=== PATIENT | female | born 1955 | race Caucasian/White ===

== ENCOUNTER 2016-12-13 05:04 | Emergency (ER) | payer OTHER ==
--- NOTE | ~2016-12-13 | CR72 ---
[facility] A Service of [facility] & [facility] RADIOLOGY TEXT RESULTS PATIENT: CHUN MELISSA LOCATION: [facility] : 55 UNIT #: [id number] AGE: [address]: Scott Liang MD SEX: F ORDER DR: [id number] [facility] [address] [place], [place] [address] [id number] MR#: [id number] Acc #: [id number] NAME: CHUN MELISSA : 1955 SEX: F STUDY DATE/TIME: 12/13/2016 6:59 UNIT: [facility] ROOM: STUDY DESCRIPTION: CR Chest Single View Portable Attending Physician: Scott Liang M.D. Ordering Physician: Scott Liang M.D. Primary Care Physician: Abdi Morgan M.D. MEDICAL IMAGING REPORT This report is preliminary unless electronic signature is present EXAM Portable chest HISTORY Shortness of air. COMPARISON 07/01/2016. FINDINGS Portable view of the chest demonstrates right-sided volume loss with mild elevation of the right hemidiaphragm. Probable small chronic pleural thickening or effusion. Opacity overlying the right midlung may be related to focal scarring or pleural-based process. Left lung remains clear. Heart, mediastinum unremarkable in this patient post median sternotomy and valve replacement. Indwelling venous access port noted. Postoperative change noted in the right shoulder and C-spine. Overall no acute findings. Dictated by... Silvia Valenzuela M.D. THIS IS AN ELECTRONICALLY VERIFIED REPORT Silvia Valenzuela M.D. at 12/13/2016 3:56 PM ARDEN/chandan TD: 12/13/2016 07:19 JOB #: [id number] MEDICAL IMAGING REPORT Page 1 of 1 COPY
--- NOTE | ~2016-12-13 | EKG ---
PATIENT: CHUN MELISSA UNIT #: [id number] Ventricular Rate: 71 BPM Atrial Rate: 71 BPM P-R Interval: 148 ms QRS Duration: 94 ms Q-T Interval: 426 ms QTC Calculation(Bezet): 462 ms P [place]: 62 degrees Calculated R [place]: 35 degrees Calculated T Ste[place]: 71 degrees Diagnosis Line: Normal sinus rhythm Diagnosis Line: Septal infarct , age undetermined Diagnosis Line: Abnormal ECG Diagnosis Line: When compared with ECG of 01-JUL-2016 14:28, Diagnosis Line: Nonspecific T wave abnormality no longer evident Diagnosis Line: in Lateral leads Diagnosis Line: Confirmed by ALEXUS DAVIES MD ([id number]) on Diagnosis Line: 12/13/2016 8:11:08 AM INTERPRETING MD: SAMSON BANGURA
[~2016-12-13 05:04] MED LIST: ACETAMINOPHEN PO; ACETAMINOPHEN500 M2 PO; ACETAMINOPHEN650 M3 PO; ADVAIR 115-21 INH; ADVAIR 250-501 EACH IH; ADVAIR 500-501 EACH; ADVAIR 500-501 EACH IH; ADVAIR 5001 DISK W/1 IH; ALAVERT10 M1 PO; ALAVERT10 MG PO; ALBUTEROL 0.5ML INH; ALBUTEROL20 ml INH; ALTACE PO; AMIODARONE PO; AMLODIPINE BESY10 MG PO; AMLODIPINE BESYL5 MG PO; AMOXICILLIN PO; AMOXICILLIN500 M1 PO; ANTIVERT PO; ASPIRIN PO; ASPIRIN81 M1 PO; ASPIRIN81 M2 PO; ASTEPRO205.5 MCG/ NS; ATENOLOL PO; AUGMENTIN875 M1 PO; B-121000 MC1 PO; BACLOFEN10 MG PO; BAYER CHEWABLE81 MG PO; BIOFREEZE118 ML TOP; BUDEPRION XL150 MG PO; BUMETANIDE2 M1 PO; CARDIZEM CD PO; CARDIZEM CD180 M1 PO; CARDIZEM CD240 M1 PO; CARVEDILOL12.5 MG PO; CARVEDILOL6.25 MG PO; CETIRIZINE HCL10 MG PO; CHANTIX PO; CLARITHROMYCIN500 M1; CLARITHROMYCIN500 M1 PO; CLARITIN10 M2 PO; CLARITIN10 MG PO; CLINDAMYCIN HC300 MG PO; CODEINE 10 MG/118 ML PO; COLESTID1 GM; COMBIVENT INH14.7 GM INH; COMPAZINE5 M1 PO; COMPAZINE5 MG PO; COREG PO; COREG12.5 M1 PO; COREG6.25 MG PO; COUMADIN PO; COUMADIN2.5 MG PO; COUMADIN4 MG PO; COUMADIN5 MG PO; COUMADIN6 MG PO; CYMBALTA PO; CYMBALTA20 MG PO; DAKIN'S MODIF1000 ML EXT; DELTASONE20 MG PO; DETROL; DIFLUCAN PO; DIFLUCAN100 MG PO; DULCOLAX10 MG/SUPP PR; DURAGESIC TOP; EFFEXOR XR PO; EFFEXOR-XR150 MG PO; FERRO-TIME325 MG PO; FLAGYL PO; FLEXERIL PO; FLONASE ALLERG9.9 ML; FLUOXETINE HCL20 M1 PO; FUROSEMIDE40 MG PO; GABAPENTIN400 M2 PO; GABAPENTIN800 MG PO; GLUCOPHAGE500 M1 PO; GLUCOPHAGE500 MG PO; GLUCOTROL PO; HYDROCODON-ACE1 EA11 PO; HYDROCODON-ACE1 EAC5 PO; IMDUR PO; IMDUR-ER30 MG PO; IMDUR30 MG PO; IPRAT-ALBUT 0.5-3 ML INH; K-DUR10 MEQ PO; K-DUR20 ME1 PO; K-DUR20 ME2 PO; KCL PO; KENALOG IN ORABA5 GM TOP; LANTUS100 UNITS/; LASIX PO; LASIX20 MG PO; LEVAQUIN PO; LEVAQUIN750 MG PO; LEVOTHROID125 MCG PO; LEVOXYL175 MC1 PO; LEVOXYL200 MC1 PO; LIPITOR40 MG PO; LISINOPRIL PO; LODINE PO; LOMOTIL WHITE2.5 MG; LOPRESSOR PO; LORTAB 10-5001 EACH PO; LORTAB 7.5-5001 TAB PO; LOVENOX SUBQ; LOVENOX80 MG/0.8 INJ; LOW DOSE ASPIRI81 M1 PO; MEDROL PO; MELATONIN3 M4 PO; METFORMIN HCL500 M1 PO; METFORMIN HCL500 M3 PO; METFORMIN PO; METOPROLOL SUCC50 MG PO; METOPROLOL TART25 MG PO; MICRO-K10 MEQ PO; MONTELUKAST SOD10 MG PO; NAPROXEN PO; NEPHROCAPS CAPSU1 MG PO; NEURONTIN PO; NEURONTIN800 MG DOB; NEURONTIN800 MG PO; NITROGLYGERIN0.4 MG SL; NITROGYLCERIN SUBLINGUAL; NITROSTAT0.4 MG SL; NORCO 10-325 TA1 TAB PO; NORCO 10/325 TA1 TAB PO; NORCO 10/3251 TAB PO; NORCO 5/325 TAB1 TAB PO; NORCO1 TAB 10/3 PO; NORVASC PO; NORVASC10 MG PO; NOVOLOG100 U/M2; NYSTATIN10 G1 MC; OXYCONTIN20 MG; OXYCONTIN20 MG PO; OXYCONTIN40 MG PO; OXYCONTIN60 MG PO; PANTOPRAZOLE SO40 MG PO; PHENERGAN25 MG PO; PLAVIX PO; POTASSIUM CHLO10 ME1 PO; POTASSIUM CHLO10 MEQ DOB; POTASSIUM CHLO10 MEQ PO; PREDNISONE PO; PROTONIX PO; PROZAC PO; PROZAC40 MG PO; REMEDY NUTRASH TOP; SENNA S TABLET1 TAB PO; SINGULAIR PO; SPIRIVA HHN; SPIRIVA RESPIMAT4 G1; SPIRIVA18 MCG INH; SPIRIVA18 MCG PO; SYNTHROID PO; SYNTHROID0.05 MG PO; SYNTHROID0.2 MG DOB; SYNTHROID0.2 MG PO; TOPROL XL 50 MG50 MG PO; TOPROL XL PO; TRAMADOL HCL50 M1 PO; TUSSIONEX PO; VENLAFAXINE HC150 M1 PO; VENLAFAXINE HC150 MG PO; VERAPAMIL ER180 MG PO; VERAPAMIL ER240 M1 PO; VERAPAMIL ER240 MG PO; VICODIN 5/500 T1 TAB PO; VICODIN PO; WARFARIN SODIUM4 M1 PO; WELLBUTRIN PO; ZETIA PO; ZOCOR10 MG PO; ZOFRAN PO; ZYRTEC10 M2 PO; [UNRECOGNIZED DRUG - CODE] INJ; [UNRECOGNIZED DRUG - REMARK]
[2016-12-13 07:49] LABS: POC - TROPONIN <0.05 ng/mL (<=0.05)
[2016-12-13 08:05] LABS: BASOPHIL% 0.1 % (0-2.5); DIFF IND NO; HEMATOCRIT 29.4 % (35.0-45.0); HEMOGLOBIN 9.2 gm/dL (12.0-16.0); LYMPHOCYTE# 2.3 X10e3 (1.0-3.5); LYMPHOCYTE% 34.9 % (17.0-45.0); MEAN CELL VOLUME 91.8 FL (83-96); MEAN CORPUSCULAR HEMOGLOBIN 28.7 PG (28-34); MEAN CORPUSCULAR HGB CONC 31.3 g/dL (30-36); MEAN PLATELET VOLUME 9.6 FL (6.5-11.5); MONOCYTE# 0.6 X10e3 (0-1.0); MONOCYTE% 8.6 % (3.0-12.0); NEUTROPHIL# 3.7 X10e3 (1.5-7.1); NEUTROPHIL% 56.4 % (40-75); PLATELET COUNT 198 X10e3 (140-420); RED BLOOD COUNT 3.21 X10e (3.90-5.30); RED CELL DISTRIBUTION WIDTH 18.1 % (11.0-15.5); WHITE BLOOD COUNT 6.6 X10e3 (4.0-10.5)
[2016-12-13 08:17] LABS: INR 4.2
[2016-12-13 08:21] LABS: PROTHROMBIN TIME (PATIENT) 46.7 SECONDS (9.6-11.5)
[2016-12-13 08:52] LABS: ALBUMIN SERUM 3.2 g/dL (3.5-5.0); BILIRUBIN, DIRECT 0.1 mg/dL (0.0-0.2); BILIRUBIN,INDIRECT 0.4 mg/dL (0.0-0.9); BILIRUBIN,TOTAL 0.5 mg/dL (0.2-2.0); BUN/CREATININE RATIO 16.66; CREATININE SERUM 0.6 mg/dL (0.6-1.4); GLOM FILT RATE Estimated 98.4 mL/min (>60); POTASSIUM 3.9 mmol/L (3.5-5.1); PROTEIN TOTAL SERUM 6.9 g/dL (6.0-8.3)
[2016-12-13] MEDS ORDERED: WARFARIN SODIUM1 MG PO (08:53)
[2016-12-13 09:40] LABS: POC - CKMB <1.0 ng/mL (0.0-7.9); POC - TROPONIN <0.05 ng/mL (<=0.05)
== END 2016-12-13 09:52 | disposition home or self-care (01) ==
LOC: CED 05:04
PROVIDERS: Emergency Medicine
DX: R07.89 Other chest pain (principal); R06.02 Shortness of breath; J44.9 Chronic obstructive pulmonary disease, unspecified; I10 Essential (primary) hypertension; Z87.891 Personal history of nicotine dependence; Z79.899 Other long term (current) drug therapy; Z88.2 Allergy status to sulfonamides; Z88.8 Allergy status to other drugs, medicaments and biological substances; Z88.1 Allergy status to other antibiotic agents
CPT/HCPCS: 36415; 71010; 80048; 80076; 82553; 83880; 84484; 85025; 85610; 93005; 99284

== ENCOUNTER 2017-03-10 11:38 | Observation (INO) | payer OTHER ==
[~2017-03-10] VITALS: Ht 165.1 cm; Wt 82.0 kg
--- NOTE | ~2017-03-10 | DS ---
Unit #: [id number] #: [id number] Patient: CHUN MELISSA [id number] [address] [place], [place] [address] [id number] MR#: [id number] NAME: CHUN MELISSA ROOM: 576 Age: 61 Sex: F Admission Date: 03/10/2017 : 1955 Discharge Date: 03/12/2017 Attending Physician: Judi Castaneda M.D. Primary Care Physician: Abdi Morgan M.D. DISCHARGE SUMMARY REASON FOR ADMISSION Rectal bleeding. HISTORY OF PRESENT ILLNESS/HOSPITAL COURSE The patient is a 61-year-old female with underlying history of lung carcinoma, chronic anticoagulation, atrial fibrillation, CAD, who presented secondary to acute bleeding per rectum. She underwent a CT of abdomen and pelvis new in the emergency room, which raised the possibility of colitis/proctitis. It was also noted she had a mass-like area of consolidation in her right lower lobe. Secondary to her rectal bleeding, this prompted a consultation to GI services by Dr. Rocha and associates. I saw and evaluated the patient. The patent underwent ultimately a colonoscopy that revealed a nonspecific colitis, which was present on the left side. Poor prep was noted but there was no active bleeding, which was noted. Biopsies appropriately were taken. From a GI standpoint, the patient was felt stable to be discharged home. This morning her hemoglobin currently stands at 7.8. During admission her hemoglobin was 8.5. Some level of dilution maybe a contributing factor. Secondary to abnormal urinalysis, initially in the emergency room, final urine culture did reveal E. coli which was sensitive to p.o. Bactrim, ampicillin, as well as Macrobid. She will be given a prescription for Macrobid at the time of discharge for additional three days. Secondary to prior history of lung carcinoma, which is followed at the [facility], this prompted a noncontrast CT, which was performed and did show and interval recurrent disease process and/or new metastatic disease in the right hemithoracic. A dominant mass was in the superior segment of the right lower lobe measuring approximately 3.2 x 4.9 cm. Additional some pleural spiculated mass was also noted in the superior segment of the right lower lobe measuring 3.1 x 2.7 cm. There was supraclavicular, as well as mediastinal adenopathy, which was also noted. These resulted were conveyed to the patient. She states she has a followup appointment on 03/17/2017 with her routine oncologist. I encourage her to keep that appointment for followup in regards to overall level of care. Her TSH on this hospital admission was also noted to be 0.24. Her Unit #: [id number] #: [id number] Patient: CHUN MELISSA Synthroid dosage will be adjusted appropriately. Please see below for final discharge medications. FINAL DISCHARGE DIAGNOSES 1. Bright reg blood per rectum. 2. Colitis. 3. Lung mass/recurrence of lung carcinoma. 4. Possible metastatic lesions present in lung. 5. History of hypertension. 6. Hypothyroidism. 7. Chronic pain syndrome. 8. Chronic anticoagulation. 9. Atrial fibrillation. 10. Coronary artery disease. 11. Prior history of gastroesophageal reflux disease. FINAL DISCHARGE MEDICATIONS 1. Coumadin 1 mg Tuesday, Tuesday, Tuesday, Tuesday, and 0.5 mg additional Tuesday, , Tuesday. 2. Neurontin 800 mg p.o. q.6. 3. Glucophage 500 mg p.o. b.i.d. 4. Coreg 12.5 mg p.o. b.i.d. 5. Lasix 40 g p.o. daily. 6. Singulair 10 mg p.o. q.h.s. 7. Aspirin 81 mg daily. 8. Oxycodone 60 mg p.o. q.12. 9. Protonix 40 mg p.o. daily. 10. Klor-Con 10 mEq p.o. b.i.d. 11. Synthroid 175 mcg p.o. daily. 12. Folic acid 1 mg p.o. daily. 13. Flagyl 500 mg p.o. q.8 x7 days. 14. Cipro 500 mg p.o. b.i.d. x7 days. 15. Macrobid 100 mg p.o. b.i.d. x3 days. DISCHARGE CONDITION Stable. DISCHARGE DISPOSITION Home. OUTPATIENT FOLLOWUP Followup as outlined above. Dictated by... Chadwick Rand TD: 03/15/2017 11:22 JOB #: [id number] Unit #: [id number] #: [id number] Patient: CHUN MELISSA DISCHARGE SUMMARY Page 1 of 1 X Judi Castaneda MD DISCHARGE SUMMARY
--- NOTE | ~2017-03-10 | CO ---
Unit #: [id number] #: [id number] Patient: CHUN MELISSA [id number] [address] [place], [place] [address] [id number] MR#: [id number] NAME: CHUN MELISSA ROOM: 576 Age: 61 Sex: F Admission Date: 03/10/2017 : 1955 Attending Physician: Judi Castaneda M.D. Primary Care Physician: Abdi Morgan M.D. Consultation Date: 03/11/2017 CONSULTATION REPORT PRIMARY CARE PHYSICIAN Abdi Morgan M.D. REASON FOR CONSULTATION Lower gastrointestinal bleed and anemia of acute gastrointestinal blood loss. HISTORY OF PRESENT ILLNESS Ms. Melissa is a 61-year-old white female. The patient has at least 2 to 3 months history of almost daily hematochezia. Today, she had substantial amount of bleeding. She is using a diaper because of the relentless bleeding. There is very little pain associated with the bleeding. She has some cramping in the right and left lower abdomen. She has significant past medical history as mentioned below. Her last colonoscopy was at least 7 or 8 years ago. She also tells me she lost about 40 pounds over the last couple of months. PAST MEDICAL HISTORY Significant for valvular heart disease, status post prosthetic valve replacement; chronic atrial fibrillation, on long-term anticoagulation; coronary artery disease; CHF; hypertension; SLE; lung cancer; hepatitis B; gastroesophageal reflux; diabetes; COPD; chronic respiratory failure; obstructive sleep apnea; hypothyroidism. The patient has had multiple recurrences of lung cancer and she has a surgery, radiation therapy, and currently on chemotherapy. She has a mitral valve replacement mechanical [place]. Ramón valve. Also obstructive sleep apnea, on CPAP machine. PAST SURGICAL HISTORY Included cholecystectomy, appendectomy, breast surgery, lung lobectomy, right knee surgery, herniorrhaphy, hysterectomy, coronary stent placement, prosthetic mitral valve replacement with a St. Ramón valve, coronary artery bypass graft. SOCIAL HISTORY Lives with partner. Quit smoking about 12 years ago. Does not drink alcohol or use any recreational drugs. She walks around with a walker without any help. FAMILY HISTORY Significant for mother having a some form of cancer. HOME MEDICATIONS Include the following. Warfarin, Synthroid, Protonix, folic acid, potassium, Singulair, Lasix, Coreg, aspirin, Glucophage, gabapentin, Unit #: [id number] #: [id number] Patient: CHUN MELISSA OxyContin. In addition, she is on oral chemotherapy agent for lung cancer. ALLERGIES She is allergic to following medicines. Erythromycin, amiodarone, tetracycline, morphine, sulfonamides, and Toradol. REVIEW OF SYSTEMS Detailed review of organ system reveals a 30-pound weight loss. There is no history of fever, chills, or rigors. No history of headache, seizures, chest pain, or syncope. No history of cough, expectoration, or hemoptysis. No history of dysuria, hematuria, or pyuria. No history of focal seizures or extremity weakness. There is history of recurrent hematochezia. No history of skin rash, aphthous ulcer in mouth, or reactive arthritis. PHYSICAL EXAMINATION GENERAL: She is awake and alert, and oriented. VITAL SIGNS: Stable with a temperature of 98.2, pulse is 90 per minute and regular, respiratory rate is 18, and blood pressure is 121/42. She weighs 181 pounds, appears obese. Baseline weight has been about 218 pounds in the past. HEENT: She has moderate pallor. There being no icterus, lymphadenopathy, and grade 1 to 2 pitting peripheral edema. CARDIOVASCULAR: Reveals prosthetic heart valve clicking sounds on auscultation. LUNGS: Reveal bilateral symmetric normal air entry. ABDOMEN: Soft, obese, and nontender. Liver and spleen are not palpable. Bowel sounds normal. DIAGNOSTIC STUDIES LABORATORY RESULTS: Shows an admission hemoglobin of 8.1, baseline hemoglobin is 13. Red cell indices are normochromic and normocytic. Her white count is 6.8 and platelet count is 234. Serum chemistry shows a normal BUN and creatinine and electrolytes, and albumin of 2.9. LFTs otherwise normal. Her iron studies showed low transferrin saturation. B12 and folate levels normal to high. CLINICAL IMPRESSION The patient with substantial intermittent hematochezia, also underlying iron deficiency and multiple comorbidities as mentioned under past medical history. She clearly at high risk for complications from any procedure. A colonoscopy with possible internal hemorrhoidal band ligation will be performed tomorrow. The pros and cons of procedure, potential risks, complications were discussed with the patient and she was reassured. She will require prophylactic antibiotics before the procedure. Thank you for asking me to see this pleasant woman. I appreciate the consult. Dictated by... Chadwick Ramírez/willy TD: 03/11/2017 13:09 JOB #: [id number] CC: Chadwick Cook M.D. Unit #: [id number] #: [id number] Patient: CHUN MELISSA CONSULTATION REPORT Page 1 of 1 X Bertrand Rocha MD CONSULTATION REPORT
--- NOTE | ~2017-03-10 | EKG ---
PATIENT: CHUN MELISSA UNIT #: [id number] Ventricular Rate: 74 BPM Atrial Rate: 74 BPM P-R Interval: 150 ms QRS Duration: 94 ms Q-T Interval: 410 ms QTC Calculation(Bezet): 455 ms P [place]: 70 degrees Calculated R [place]: 22 degrees Calculated T [place]: 64 degrees Diagnosis Line: Normal sinus rhythm Diagnosis Line: Normal ECG Diagnosis Line: When compared with ECG of 10-MAR-2017 15:28, Diagnosis Line: No significant change was found Diagnosis Line: Confirmed by HUNTER GREEN MD ([id number]) on 03/11/2017 Diagnosis Line: 4:51:03 PM INTERPRETING MD: PETER BANGURA
--- NOTE | ~2017-03-10 | OR ---
Unit #: [id number] #: [id number] Patient: CHUN MELISSA [id number] [address] [place], [place] [address] [id number] MR#: [id number] NAME: CHUN MELISSA ROOM: 576 Date of Procedure: 03/11/2017 Admission Date: 03/10/2017 Surgeon: Bertrand Rocha M.D. : 1955 Attending Physician: Judi Castaneda M.D. Primary Care Physician: Abdi Morgan M.D. OPERATIVE REPORT PRIMARY CARE PHYSICIAN Abdi Morgan M.D. PREOPERATIVE DIAGNOSIS Hematochezia. PROCEDURES PERFORMED Colonoscopy and biopsies. POSTOPERATIVE DIAGNOSES The patient had nonspecific left-sided colitis, changes of primarily in the form of granularity, erythema erosions, and friability. The transverse and right side of the colon were spared. The quality of the prep was poor with lot of liquid stool residue coating throughout the entire especially right colon. As a result, even significant polyps could have been missed during examination. Multiple biopsies were obtained from the sigmoid and descending colon and sent for histology. Specifically, the patient did not have any diverticula or hemorrhoids. RECOMMENDATIONS The patient will be started on regular diet. She will be followed up in the office in the next 8 to 10 weeks' time along with results of the biopsies. SEDATION USED MAC. DESCRIPTION OF PROCEDURE Following detailed explanation of the potential risks and complications of a colonoscopy, namely perforation, bleeding, and complication related to sedation, the patient was brought to GI lab and laid in the left lateral decubitus position. A digital rectal examination was performed, which was normal. Lubricated tip of the Olympus video colonoscope was inserted through the anus and advanced under direct vision. The scope was advanced past rectosigmoid into descending colon. No diverticula were noted in this area. The patient, however, with evidence of diffuse nonspecific colitis involving the sigmoid and descending colon. These were in the form of erythema, granularity, friability, and sparse ulceration. As the scope was advanced in the transverse colon, the mucosa appeared normal. No diverticula were seen this area. The scope tip was then navigated all the way up to cecum with visualization of the ileocecal valve and the appendiceal orifice. Preparation was poor especially in the right colon Unit #: [id number] #: [id number] Patient: CHUN MELISSA which was covered with a coat of liquid stool throughout that could not be thoroughly washed or suctioned. As a result, even sizable polyps could have been missed during examination. No obstructing colon cancer could have missed however. Successive segments of the colonic mucosa were examined upon withdrawal and appeared unremarkable except for the left-sided changes noted earlier. Biopsies were obtained from this area and sent for histology. Specifically, the patient did not have any diverticulosis nor any hemorrhoids. The scope was then withdrawn and the patient returned to the recovery area. She tolerated the procedure without any postprocedure complications. Dictated by... Chadwick Ramírez/willy TD: 03/11/2017 16:16 JOB #: [id number] CC: Chadwick Gonzalez M.D. OPERATIVE REPORT Page 1 of 1 X Bertrand Rocha MD X PROCEDURE OPERATIVE NOTE
--- NOTE | ~2017-03-10 | HP ---
Unit #: [id number] #: [id number] Patient: CHUN MELISSA [id number] [address] [place], [place] [address] [id number] MR#: [id number] NAME: CHUN MELISSA ROOM: Age: 61 Sex: F Admission Date: 03/10/2017 : 1955 Attending Physician: Mele Zayas D.O. Primary Care Physician: Abdi Morgan M.D. HISTORY AND PHYSICAL CHIEF COMPLAINT Rectal bleeding. HISTORY OF PRESENT ILLNESS The patient is a 61-year-old female with a past medical history of multiple medical problems including valvular heart disease, chronic anticoagulation, atrial fibrillation, coronary artery disease, CHF, hypertension, lung cancer, lupus, hepatitis B, GERD, diabetes, COPD, chronic respiratory failure, obstructive sleep apnea, and hypothyroidism, who presented to the emergency department for evaluation of the above. The patient states that she has had rectal bleeding for the past couple of months. Today, she states that her diaper was "full of blood." She states that she has had loose stool for several months as well. She reports four bouts of loose stool within the past 24 hours. She also reports lower abdominal pain for the past two to three days that she describes as "pain." There are no exacerbating or alleviating factors. She also has right-sided back/flank pain that she has had since having surgery related to lung cancer. She denies any fever, no cough or cold symptoms, no chest pain or trouble breathing, and no vomiting. She states that she has had decreased appetite and has in fact lost weight over the past couple of months, possibly up to 40 pounds. She has had a colonoscopy in the past. She thinks it was somewhere off of [address]. She thinks it was about five years ago. There are no records. She did have an EGD February 12, 2010, that showed gastritis. The patient has an appointment to see Dr. Rocha later this month. In the emergency department, initial pulse and blood pressure were 87 and 143/54, respectively. She was noted to be Hemoccult positive. Hemoglobin is 8.5. INR is 1.7. A CT of the abdomen and pelvis is pending at the time of this dictation. She is being admitted to [facility] for evaluation and further treatment. PAST MEDICAL HISTORY 1. Admission to [facility] August 03-2015, for acute respiratory failure and COPD exacerbation. 2. Chronic obstructive pulmonary disease. 3. Chronic respiratory failure on two liters of oxygen per nasal cannula continuous. The patient has seen Chest Medicine in the past. 4. Lung cancer with multiple recurrences. The patient states that this is the fourth recurrence. She is currently receiving an unknown medication. She is managed by Dr. Rutherford. She has had lobectomies in the past, as well as radiation and chemotherapy. 5. Congestive heart failure. The patient had a transesophageal Unit #: [id number] #: [id number] Patient: CHUN MELISSA echocardiogram December 03, 2011, that showed an ejection fraction of 59% with mild concentric left ventricular hypertrophy. The patient sees Dr. Palacios. 6. Coronary artery disease, status post coronary artery bypass grafting and stent placement. 7. Valvular heart disease, status post mitral valve replacement with mechanical St. Ramón valve. 8. Atrial fibrillation. 9. Hypertension. 10. Lupus. 11. Hepatitis B. 12. Gastroesophageal reflux disease. 13. Diabetes with neuropathy. 14. Obstructive sleep apnea previously on CPAP, but the patient states that she is now only on oxygen. PAST SURGICAL HISTORY 1. EGD February 12, 2010, showed gastritis. 2. Colonoscopy more than five years ago (no records). 3. Mechanical St. Ramón valve replacement. 4. Coronary artery bypass grafting. 5. Cardiac stent. 6. Appendectomy. 7. Cholecystectomy. 8. Back surgery. 9. Neck surgery. 10. Hysterectomy. 11. Hernia repair. 12. Right wrist surgery. 13. Lung lobectomy. 14. Breast surgery. SOCIAL HISTORY The patient lives with her partner. She quit smoking in 2004. There is no alcohol or illicit drug use. She walks without assistance. FAMILY HISTORY Notable for her mother having some type of malignancy. ALLERGIES Toradol, sulfa, morphine, tetracycline, erythromycin, and amiodarone. HOME MEDICATIONS 1. Warfarin 1 mg Tuesday/Tuesday/Tuesday/Tuesday and 0.5 mg Tuesday//Tuesday. 2. Synthroid 0.2 mg daily. 3. Protonix 40 mg daily. 4. Folic acid 1 mg daily. 5. Potassium 10 mEq twice daily. 6. Singulair 10 mg daily. 7. Lasix 40 mg daily. 8. Coreg 12.5 mg twice daily. 9. Aspirin 81 mg daily. 10. Glucophage 500 mg twice daily. 11. Gabapentin 800 mg q.4 hours. 12. OxyContin 60 mg q.12 hours. REVIEW OF SYSTEMS Unit #: [id number] #: [id number] Patient: CHUN MELISSA A complete review of systems is negative except as indicated in the HPI. The patient states that Dr. Palacios's office manages her INR. It was last checked on Wednesday, March 08, 2017, and was 3 per the patient. PHYSICAL EXAMINATION VITAL SIGNS: Temperature 98, pulse 87, respirations 17, blood pressure 143/54, and oxygen saturation 97% on room air. GENERAL: Patient is a female who is awake, alert, and in no acute distress. HEENT: Head is atraumatic. Mucous membranes are moist. NECK: Supple. Trachea is midline. CARDIOVASCULAR: Irregular. LUNGS: Clear to auscultation bilaterally with no increased work of breathing. ABDOMEN: Soft. She is tender to palpation in the lower quadrants. Bowel sounds are present in all four quadrants. Rectal exam was Hemoccult-positive per ER documentation. EXTREMITIES: Nontender with no pedal edema. NEUROLOGIC: Patient is awake and alert. She follows commands. PSYCHIATRIC: Mood and affect are normal. Patient is cooperative. SKIN: Skin of examined areas is warm and dry. DIAGNOSTIC STUDIES LABORATORY: Complete blood count notable for hemoglobin and hematocrit of 8.5 and 27.5, respectively. Comprehensive metabolic panel notable for a glucose of 137, alkaline phosphatase 106, albumin 3.1, and lipase is 17. INR is 1.7. ASSESSMENT The patient is a 61-year-old female with: 1. Gastrointestinal bleed. 2. Normocytic anemia. The patient's hemoglobin was 9.2 on December 13, 2016. It is 8.5 today. 3. Abdominal pain. CT of the abdomen and pelvis is pending at the time of this dictation. 4. Chronic anticoagulation with Coumadin. INR is 1.7. 5. Valvular heart disease, status post mitral valve replacement with mechanical St. Ramón valve. 6. Atrial fibrillation followed by Dr. Palacios. 7. Coronary artery disease, status post cardiac stent placement and coronary artery bypass grafting. 8. Congestive heart failure with ejection fraction of 59% noted on echocardiogram December 03, 2011. 9. Hypertension. 10. History of lung cancer with multiple recurrences, currently followed by Dr. Rutherford, on an oral medication. She is status post lobectomy, radiation, and chemotherapy in the past. 11. Lupus, not followed by air marshal. 12. Hepatitis B. 13. Gastroesophageal reflux disease. 14. Diabetes. 15. Chronic obstructive pulmonary disease, not followed by a sap hana developer, but the patient has seen Chest Medicine in the past. 16. Chronic respiratory failure, on two liters of oxygen per nasal cannula. 17. Obstructive sleep apnea, formerly on CPAP. 18. Hypothyroidism. 19. Former smoker. Unit #: [id number] #: [id number] Patient: CHUN MELISSA PLAN 1. Admit for observation. 2. Follow up results of CT abdomen and pelvis. 3. N.p.o. until results of CT. 4. Hemoglobin and hematocrit q.6 hours. Will plan to transfuse for hemoglobin less than 8 due to history of coronary artery disease. 5. Iron studies, B12, and folate. 6. Consult Dr. Rocha regarding GI bleed. 7. Hold Coumadin. 8. Hold aspirin. 9. Supplemental oxygen. 10. P.r.n. DuoNebs. 11. Hemoglobin A1c. 12. Low-dose sliding scale insulin with Accu-Cheks. 13. SCDs. 14. Repeat labs in the morning. 15. Additional workup and consultants based on above. 1. Dictated by Chadwick Gonzalez/bogdan TD: 03/10/2017 16:12 JOB #: [id number] HISTORY AND PHYSICAL Page 1 of 1 X Imani Dietz MD X HISTORY AND PHYSICAL
--- NOTE | ~2017-03-10 | CT4 ---
[facility] A Service of [facility] & [facility] RADIOLOGY TEXT RESULTS PATIENT: CHUN MELISSA LOCATION: [facility] 576-01 : 55 UNIT #: [id number] AGE: [address]: Judi Castaneda MD SEX: F ORDER DR: [id number] [facility] [address] [place], [place] [address] [id number] MR#: [id number] Acc #: [id number] NAME: CHUN MELISSA : 1955 SEX: F STUDY DATE/TIME: 03/10/2017 15:06 UNIT: [facility] ROOM: [facility] STUDY DESCRIPTION: CT Abd and Pelv Wo Cont Attending Physician: Imani Dietz M.D. Ordering Physician: Mele Zayas D.O. Primary Care Physician: Abdi Morgan M.D. MEDICAL IMAGING REPORT This report is preliminary unless electronic signature is present EXAM CT abdomen and pelvis INDICATIONS Rectal bleeding for 2 months. Increasing in severity. Nausea. TECHNIQUE CT of the abdomen and pelvis without contrast. This CT exam was performed with one or more of the following radiation dose reduction techniques: Automatic exposure control, adjustment of mA and/or kV according to patient size, and iterative reconstruction. COMPARISON Chest radiograph 12/13/[address] abdomen and pelvis 11/22/2013. FINDINGS There is a mass-like area of consolidation in the perihilar right lower lobe. This area of consolidation measures 4.7 x 2.3 cm. Dedicated chest imaging is recommended to further evaluate. There are several small pulmonary nodules in the right lower lobe measuring 2-3 mm. These are new from 2013. There is a small right pleural effusion. There is a nodular undersurface to the liver. This suggests early morphologic changes of cirrhosis, however, this is not definitive. Gallbladder is surgically absent. The pancreas is atrophic. Spleen is borderline enlarged. The adrenal glands and kidneys are within normal limits. There is no hydronephrosis. There is mild renal cortical atrophy. The bowel is not dilated. There is some mild inflammatory stranding within the sigmoid mesentery and the perirectal fat. There has been prior distal rectal resection with subsequent reanastomosis. No loculated fluid collections to suggest an abscess. [facility]. [facility] A Service of [facility] RADIOLOGY TEXT RESULTS PATIENT: CHUN MELISSA LOCATION: [facility] 576-01 : 55 UNIT #: [id number] AGE: [address]: Judi Castaneda MD SEX: F ORDER DR: No pathologically enlarged retroperitoneal or mesenteric lymph nodes. PELVIS: Bladder is decompressed. No enlarged pelvic or inguinal lymph nodes. IMPRESSION 1. Mild inflammatory stranding in the sigmoid mesentery and in the mesial rectal fat. There is some associated mild wall thickening of the colon in this area. This suggests a colitis/proctitis. Please confirm with clinical symptoms. 2. Mass-like area of consolidation in the right lower lobe. If there are symptoms related to pneumonia then a followup chest radiograph should be obtained; otherwise, consider dedicated CT imaging with contrast to evaluate for pulmonary malignancy. 3. Multiple small nodules measuring 2-3 mm in the right lower lobe are nonspecific and can be followed. 4. Development of a small right pleural effusion. Dictated by... Uriah Orozco M.D. THIS IS AN ELECTRONICALLY VERIFIED REPORT Uriah Orozco M.D. at 03/11/2017 8:22 AM FLORA/jon TD: 03/10/2017 23:02 JOB #: [id number] MEDICAL IMAGING REPORT Page 1 of 1 COPY
--- NOTE | ~2017-03-10 | EKG ---
PATIENT: CHUN MELISSA UNIT #: [id number] Ventricular Rate: 72 BPM Atrial Rate: 72 BPM P-R Interval: 148 ms QRS Duration: 90 ms Q-T Interval: 414 ms QTC Calculation(Bezet): 453 ms P Tiline: 66 degrees Calculated R Tiline: 12 degrees Calculated T Tiline: 64 degrees Diagnosis Line: Normal sinus rhythm Diagnosis Line: Cannot rule out Septal infarct (cited on or before Diagnosis Line: 13-DEC-2016) Diagnosis Line: Borderline ECG Diagnosis Line: When compared with ECG of 13-DEC-2016 05:30, Diagnosis Line: No significant change was found Diagnosis Line: Confirmed by HUNTER GREEN MD ([id number]) on 03/10/2017 Diagnosis Line: 7:02:15 PM INTERPRETING MD: PETER BANUGRA
--- NOTE | ~2017-03-10 | CT57 ---
[facility] A Service of [facility] & [facility] RADIOLOGY TEXT RESULTS PATIENT: CHUN MELISSA LOCATION: [facility] 576-01 : 55 UNIT #: [id number] AGE: [address]: Judi Castaneda MD SEX: F ORDER DR: [id number] [facility] [address] [place], [place] [address] [id number] I MR#: [id number] Acc #: [id number] NAME: CHUN MELISSA. : 1955 SEX: F STUDY DATE/TIME: 03/11/2017 11:43 UNIT: [facility] ROOM: [facility] STUDY DESCRIPTION: CT Chest Wo Cont Attending Physician: Judi Castaneda M.D. Ordering Physician: Judi Castaneda M.D. Primary Care Physician: Abdi Morgan M.D. MEDICAL IMAGING REPORT This report is preliminary unless electronic signature is present EXAM Chest CT no contrast 03/11/2017. INDICATIONS 61-year-old female with a history of lung mass on abdomen and pelvis CT performed 03/10/2017. Diagnosed with lung cancer a year ago. COPD. Status post chemotherapy. No history of radiation therapy. TECHNIQUE Noncontrast CT of the chest was performed. This CT exam was performed with one or more of the following radiation dose reduction techniques: automatic exposure control, adjustment of mA and/or kV according to patient size, and iterative reconstruction. COMPARISON Comparison 10/10/2014. FINDINGS CT CHEST: There is a new small right-sided effusion. There is mass-like consolidation in the superior segment of the right lower lobe in this patient, who appears to be status post upper lobectomy on the right. This is new compared to the prior chest CT. Dimensions 3.2 x 4.9 cm. Imaging findings are suspicious for disease recurrence in this patient with history of lung cancer. There is a new or enlarging subpleural spiculated mass in the superior segment, right lower lobe, measuring 2.7 x 3.1 cm. This may represent interval enlargement of a previously identified indeterminate 8-mm nodule on the right. There is new or increasing septal thickening in the right lower lobe. In the upper lobe on the left, ground-glass opacities are unchanged. There is an 8-mm nodule anterior to the major fissure, not significantly changed. There is new adenopathy in the supraclavicular fossa on the right. The [facility] A Service of [facility] & [facility] RADIOLOGY TEXT RESULTS PATIENT: CHUN MELISSA LOCATION: [facility] 576-01 : 55 UNIT #: [id number] AGE: [address]: Judi Castaneda MD SEX: F ORDER DR: largest conglomeration of lymph nodes measures 3.0 x 3.2 cm. There is a dominant right paratracheal node measuring 2.1 x 1.8 cm. Increased thickness of an AP window lymph node now measuring 8 mm, previously about 4 mm. These findings are also most characteristic of disease recurrence. Please note, other smaller lymph nodes are present, and the above measurements provided for reference purposes. There is no new axillary adenopathy. No pericardial effusion. The patient is status post mitral valve replacement. Aorta demonstrates atherosclerotic change. The patient may also be status post graft repair of the ascending aorta. Correlate clinically. Included upper abdomen demonstrates surgical absence of the gallbladder. There is no suspicious bone lesion. There are degenerative changes in the thoracolumbar spine. Chronic rib deformity on the right. IMPRESSION 1. Abnormal examination. There has been interval recurrence of disease, or there is new metastatic disease in the right hemithorax and mediastinum. The dominant mass is in the superior segment right lower lobe measuring up to 3.2 x 4.9 cm. Additional subpleural spiculated mass in the superior segment right lower lobe measures 3.1 x 2.7 cm. There is supraclavicular and mediastinal adenopathy, as described. 2. New trace to small right effusion. 3. Ground-glass opacities in the upper lobe on the left and a noncalcified nodule in the upper lobe on the left are unchanged and can be followed on subsequent studies to reassess stability. 4. Upper abdomen demonstrates postop changes of cholecystectomy. STAT * RESULT Dictated by... Gregory Chavarria M.D. THIS IS AN ELECTRONICALLY VERIFIED REPORT Gregory Chavarria M.D. at 03/11/2017 5:20 PM Krista TD: 03/11/2017 14:19 JOB #: [id number] MEDICAL IMAGING REPORT Page 1 of 1 COPY
[~2017-03-10 11:38] MED LIST changes: +WARFARIN SODIUM1 MG PO
[2017-03-10 12:19] LABS: BASOPHIL% 0.3 % (0-2.5); EOSINOPHIL# 0.1 X10e3 (0-0.7); EOSINOPHIL% 2.4 % (0.0-7.0); HEMATOCRIT 27.5 % (35.0-45.0); HEMOGLOBIN 8.5 gm/dL (12.0-16.0); LYMPHOCYTE# 1.2 X10e3 (1.0-3.5); LYMPHOCYTE% 20.5 % (17.0-45.0); MEAN CELL VOLUME 86.2 FL (83-96); MEAN CORPUSCULAR HEMOGLOBIN 26.6 PG (28-34); MEAN CORPUSCULAR HGB CONC 30.8 g/dL (30-36); MEAN PLATELET VOLUME 7.7 FL (6.5-11.5); MONOCYTE# 0.6 X10e3 (0-1.0); MONOCYTE% 10.4 % (3.0-12.0); NEUTROPHIL# 3.8 X10e3 (1.5-7.1); NEUTROPHIL% 66.4 % (40-75); PLATELET COUNT 229 X10e3 (140-420); RED BLOOD COUNT 3.19 X10e (3.90-5.30); RED CELL DISTRIBUTION WIDTH 16.9 % (11.0-15.5); WHITE BLOOD COUNT 5.7 X10e3 (4.0-10.5)
[2017-03-10 12:20] LABS: DIFF IND NO
[2017-03-10 12:46] LABS: ALBUMIN SERUM 3.1 g/dL (3.5-5.0); BILIRUBIN, DIRECT 0.2 mg/dL (0.0-0.2); BILIRUBIN,INDIRECT 0.4 mg/dL (0.0-0.9); BILIRUBIN,TOTAL 0.6 mg/dL (0.2-2.0); BUN/CREATININE RATIO 13.75; CALCIUM SERUM 8.9 mg/dL (8.4-10.2); CREATININE SERUM 0.8 mg/dL (0.6-1.4); GLOM FILT RATE Estimated 79.6 mL/min (>60); POTASSIUM 4.7 mmol/L (3.5-5.1); PROTEIN TOTAL SERUM 6.3 g/dL (6.0-8.3)
[2017-03-10 13:06] LABS: INR 1.7; PARTIAL THROMBOPLASTIN TIME 35.4 SECONDS (23.5-31.3)
[2017-03-10 14:26] LABS: URINE SOURCE CLEAN CATCH
[2017-03-10] MEDS ORDERED: FOLIC ACID1 MG PO (14:28)
[2017-03-10] MEDS ORDERED: PROTONIX PO (14:28)
[2017-03-10] MEDS ORDERED: SYNTHROID0.2 MG PO (14:28)
[2017-03-10] MEDS ORDERED: LASIX20 MG PO (14:29)
[2017-03-10] MEDS ORDERED: SINGULAIR PO (14:29)
[2017-03-10] MEDS ORDERED: METFORMIN PO (14:29)
[2017-03-10] MEDS ORDERED: ASPIRIN81 M2 PO (14:29)
[2017-03-10] MEDS ORDERED: COREG12.5 M1 PO (14:29)
[2017-03-10] MEDS ORDERED: KCL PO (14:29)
[2017-03-10] MEDS ORDERED: GABAPENTIN800 MG PO (14:30)
[2017-03-10] MEDS ORDERED: OXYCONTIN PO (14:30)
[2017-03-10 14:34] LABS: URINE APPEARANCE CLOUDY; URINE BLOOD 2+ (NEG); URINE COLOR DK YELLOW; URINE GLUCOSE NEG (NEG); URINE KETONE TRACE (NEG); URINE LEUKOCYTE ESTERASE 2+ (NEG); URINE NITRATE NEG (NEG); URINE PROTEIN 1+ (NEG); URINE SPECIFIC GRAVITY 1.033 (1.003-1.035)
[2017-03-10 14:37] LABS: CULTURE INDICATED? YES; URINE BACTERIA AUWI 2+ (NEGATIVE); URINE SQUAMOUS EPITHELIAL CELL FEW /[HPF]; UWBCS1 AUWI 25-50 (0-5)
[2017-03-10] MEDS ORDERED: COUMADIN (14:42)
[2017-03-10 14:51] LABS: URINE BILIRUBIN POS (NEG)
[2017-03-10 16:55] LABS: IRON SERUM 32 ug/dL (28-170); TOTAL IRON BINDING CAPACITY 277 ug/dL (269-535); TRANSFERRIN 198 mg/dL (192-382); TRANSFERRIN SATURATION 12 % (20-50)
[2017-03-10 17:11] LABS: FOLATE (FOLIC ACID) >23.3 ng/mL (>5.8)
[2017-03-10 18:54] LABS: HEMATOCRIT 24.7 % (35.0-45.0); HEMOGLOBIN 8.1 gm/dL (12.0-16.0)
[2017-03-10 19:16] LABS: MAGNESIUM 1.4 mg/dL (1.6-3.0)
[2017-03-11 02:42] LABS: CK TOTAL 30 IU/L (26-140)
[2017-03-11 05:37] LABS: INR 1.4; PROTHROMBIN TIME (PATIENT) 15.4 SECONDS (10.0-11.7)
[2017-03-11 05:49] LABS: HEMATOCRIT 26.7 % (35.0-45.0); HEMOGLOBIN 8.6 gm/dL (12.0-16.0); MEAN CELL VOLUME 84.9 FL (83-96); MEAN CORPUSCULAR HEMOGLOBIN 27.4 PG (28-34); MEAN CORPUSCULAR HGB CONC 32.3 g/dL (30-36); MEAN PLATELET VOLUME 7.6 FL (6.5-11.5); RED BLOOD COUNT 3.15 X10e (3.90-5.30); RED CELL DISTRIBUTION WIDTH 16.9 % (11.0-15.5); WHITE BLOOD COUNT 6.8 X10e3 (4.0-10.5)
[2017-03-11 06:22] LABS: ALBUMIN SERUM 2.9 g/dL (3.5-5.0); CALCIUM SERUM 8.9 mg/dL (8.4-10.2); CREATININE SERUM 0.6 mg/dL (0.6-1.4); GLOM FILT RATE Estimated 98.4 mL/min (>60); POTASSIUM 4.6 mmol/L (3.5-5.1); PROTEIN TOTAL SERUM 5.7 g/dL (6.0-8.3)
[2017-03-12 07:52] LABS: HEMATOCRIT 24.6 % (35.0-45.0); HEMOGLOBIN 7.8 gm/dL (12.0-16.0); MEAN CELL VOLUME 85.3 FL (83-96); MEAN CORPUSCULAR HGB CONC 31.7 g/dL (30-36); MEAN PLATELET VOLUME 7.6 FL (6.5-11.5); RED BLOOD COUNT 2.88 X10e (3.90-5.30); WHITE BLOOD COUNT 4.8 X10e3 (4.0-10.5)
[2017-03-12 08:05] LABS: INR 1.2; PROTHROMBIN TIME (PATIENT) 13.4 SECONDS (10.0-11.7)
[2017-03-12 08:26] LABS: CALCIUM SERUM 8.5 mg/dL (8.4-10.2); CREATININE SERUM 0.5 mg/dL (0.6-1.4); GLOM FILT RATE Estimated 104.5 mL/min (>60); POTASSIUM 4.2 mmol/L (3.5-5.1)
[2017-03-12] MEDS ORDERED: CIPRO250 M1 PO (10:33)
[2017-03-12] MEDS ORDERED: FLAGYL PO (10:34)
[2017-03-12] MEDS ORDERED: MACROBID100 MG PO (10:35)
[2017-03-12] MEDS ORDERED: WARFARIN SODIUM4 M1 PO (11:13)
== END 2017-03-12 13:43 | disposition home or self-care (01) ==
LOC: CED 11:38 → C5C 14:55 → CED 17:46 → C5C 17:46
PROVIDERS: Emergency Medicine; Family Medicine; Internal Medicine Gastroenterology
DX: K63.0 Abscess of intestine (principal); K52.9 Noninfective gastroenteritis and colitis, unspecified; K62.89 Other specified diseases of anus and rectum; J44.9 Chronic obstructive pulmonary disease, unspecified; J96.10 Chronic respiratory failure, unspecified whether with hypoxia or hypercapnia; C34.90 Malignant neoplasm of unspecified part of unspecified bronchus or lung; I50.9 Heart failure, unspecified; I25.10 Atherosclerotic heart disease of native coronary artery without angina pectoris; I48.91 Unspecified atrial fibrillation; I11.0 Hypertensive heart disease with heart failure; K21.9 Gastro-esophageal reflux disease without esophagitis; E11.40 Type 2 diabetes mellitus with diabetic neuropathy, unspecified; G47.33 Obstructive sleep apnea (adult) (pediatric); D64.9 Anemia, unspecified; E03.9 Hypothyroidism, unspecified; Z95.1 Presence of aortocoronary bypass graft; Z95.5 Presence of coronary angioplasty implant and graft; Z90.49 Acquired absence of other specified parts of digestive tract; Z86.19 Personal history of other infectious and parasitic diseases; Z90.710 Acquired absence of both cervix and uterus; Z87.891 Personal history of nicotine dependence; Z79.01 Long term (current) use of anticoagulants; Z79.899 Other long term (current) drug therapy
CPT/HCPCS: 36415; 71250; 74176; 80048; 80053; 80076; 81003; 82550; 82607; 82728; 82746; 82947; 83036; 83540; 83550; 83690; 83735; 84443; 84484; 85014; 85018; 85025; 85027; 85610; 85730; 86850; 86900; 86901; 87086; 87088; 87186; 87493; 88305; 93005; 94640; 94760; 96361; 96372; 96375; 96376; 99285; G0378; J1170; J1642; J1650; J2250; J2543